=== PATIENT | female | born 1955 | race Native Hawaiian/Other Pacific Islander ===

== ENCOUNTER 2016-09-13 13:33 | Outpatient (CLI) | payer BC | END 2016-09-13 19:33 | disposition home or self-care (01) | LOC: RESP 13:33 | DX: Z01.810 Encounter for preprocedural cardiovascular examination (principal); Z01.811 Encounter for preprocedural respiratory examination; Z01.812 Encounter for preprocedural laboratory examination | CPT/HCPCS: 93005 ==